=== PATIENT | female | born 1995 | race Caucasian/White ===

== ENCOUNTER 2020-11-06 11:40 | Emergency (ER) | payer OTHER ==
[~2020-11-06] VITALS: Ht 152.4 cm; Wt 80.3 kg
[2020-11-06 12:23] LABS: BASOPHIL % 0.5 % (0.2-1.3); PLATELET COUNT 241 x10^3mcL (179-408); RED CELL DISTRIBUTION WIDTH 13.5 % (12.3-17.7)
[2020-11-06 12:56] LABS: microscopic required? NO
[2020-11-06 12:59] LABS: rbc morphology (normal/abnorm) NORMAL (NORMAL)
[2020-11-06 13:08] LABS: urine erythrocyte NEGATIVE (NEGATIVE)
[2020-11-06 14:16] VITALS: BP 100/69
== END 2020-11-06 14:16 | disposition home or self-care (01) ==
LOC: ED 11:40
PROVIDERS: Emergency Medicine
DX: O20.0 Threatened abortion (principal)